=== PATIENT | female | born 1960 | race Caucasian/White ===

== ENCOUNTER 2022-04-27 21:09 | Inpatient (IN) | payer OTHER ==
[2022-04-27] MEDS ORDERED: DUONEB 0.5-3 MG/3 ml Neb IH ONE ×2 (21:28→21:42)
[2022-04-27] MEDS ORDERED: solu-MEDROL 125 MG, Sterile H2O 10 ml 2 ML IV ONE ×2 (21:28)
[2022-04-27] MEDS ORDERED: Zithromax 500 MG/ 250 ML NaCl Premix 500 MG/250 ML IVPB IV STA (21:28)
--- NOTE | 2022-04-27 21:33 | ERPHSYRPT ---
- History of Present Illness Time Seen by Provider: 04/27/22 21:12 Source: patient, family Exam Limitations: no limitations Physician History: 61 years old female with history of heavy tobacco use, COPD presented in the ER with 5-day history of cough and cold symptoms. Patient reports initially it started as a sore throat and gradually worsening cough productive of yellow- green sputum copious in amount with increasing shortness of breath. Initially shortness of breath was more with activity and now even resting and having wheezing all over. No fever or chills reported. Does report having sick contact with grandson who had some viral illness. Patient is hypoxic with oxygen saturation around 86% on room air, on 2 L around 91%. Timing/Duration: day(s) (5), constant, gradual onset, worse Activities at Onset: activity, rest Severity of Dyspnea-Max: moderate Severity of Dyspnea-Current: moderate Possible Cause: illness exposure Modifying Factors: Worsens With: coughing, exertion Associated Symptoms: cough, chest pain/discomfort, wheezing, productive cough, tightness, No painful breathing Allergies/Adverse Reactions: Penicillins Allergy (Mild, Verified 04/27/22 21:22) Difficulty Breathing Home Medications: Naproxen 500 mg [Naprosyn 500 MG] 500 mg PO BID PRN 12/25/17 [History] Famotidine 20 mg PO DAILY 04/30/22 [History] Loratadine/Pseudoephedrine [Claritin-D 12 Hour Tablet] 1 each PO DAILY 04/30/22 [History] Hx Tetanus, Diphtheria Vaccination/Date Given: (unknown) Hx Influenza Vaccination/Date Given: Yes (2014) Hx Pneumococcal Vaccination/Date Given: Yes (2014) - Review of Systems Constitutional: Fatigue, Weakness Eyes: No Symptoms Ears, Nose, & Throat: Nose Congestion, Throat Pain Respiratory: Cough, Cyanosis, Dyspnea, Dyspnea on Exertion (RIZO), Wheezing Cardiac: No Symptoms Abdominal/Gastrointestinal: No Symptoms Genitourinary Symptoms: Incontinence Musculoskeletal: No Symptoms Skin: No Symptoms Neurological: Headache Psychological: No Symptoms Endocrine: No Symptoms Hematologic/Lymphatic: No Symptoms Immunological/Allergic: No Symptoms - Past Medical History Pertinent Past Medical History: Yes Neurological History: No Pertinent History ENT History: No Pertinent History Cardiac History: No Pertinent History, Hypertension Respiratory History: Other Endocrine Medical History: No Pertinent History Musculoskeletal History: Arthritis, Fibromyalgia GI Medical History: GERD History: No Pertinent History Psycho-Social History: Anxiety Female Reproductive Disorders: No Pertinent History Other Medical History: SARCOIDOSIS - Past Surgical History Past Surgical History: Yes Neuro Surgical History: No Pertinent History Cardiac: No Pertinent History Respiratory: No Pertinent History Gastrointestinal: No Pertinent History Genitourinary: No Pertinent History Musculoskeletal: Other Female Surgical History: Tubal Ligation, Other Other Surgical History: GANGLIAN CYST REMOVED FROM LEFT WRIST. BRONCHOSCOPY. LUNG BIOPSY. LEFT BREAST BIOPSY. BACK SURGERY. EXPLORATORY LAPROSCOPY - Social History Smoking Status: Current every day smoker How long have you smoked: "43 years" Exposure to second hand smoke: No Drug Use: none Patient Lives Alone: No - Nursing Vital Signs Nursing Vital Signs: Initial Vital Signs Temperature 98.6 F 04/27/22 21:23 Pulse Rate 116 H 04/27/22 21:23 Respiratory Rate 23 04/27/22 21:23 Blood Pressure 168/96 04/27/22 21:23 O2 Sat by Pulse Oximetry 92 L 04/27/22 21:23 Pain Scale Pain Intensity 5 - Physical Exam General Appearance: mild distress, alert Eye Exam: PERRL/EOMI Ears, Nose, Throat Exam: hearing grossly normal, pharyngeal erythema Neck Exam: normal inspection, non-tender, supple, full range of motion Respiratory Exam: accessory muscle use, crackles/rales, rhonchi, wheezing Cardiovascular/Chest Exam: normal heart sounds, tachycardia Abdominal/Gastrointestinal Exam: soft, No tenderness Extremity Exam: non-tender, normal range of motion Neurologic Exam: alert, oriented x 3, cooperative, district sales coordinator II-XII nml as tested Skin Exam: normal color SpO2 Interpretation: hypoxic, O2 applied SpO2: 91 O2 Delivery: Nasal Cannula (2 L) - Course EKG Interpreted by Me: RATE (111), Sinus Tach, NORMAL AXIS, NORMAL INTERVALS, NORMAL QRS, Other (ST depression lateral leads) Ordered Tests: Medication Summary Generic Name Dose Route Start Last Admin Trade Name Freq PRN Reason Stop Dose Admin Acetaminophen 650 mg 04/28/22 01:58 04/28/22 19:34 Acetaminophen 325 Mg Tablet PO 05/28/22 01:57 650 mg Q4H PRN PRN Administration PAIN AND/OR FEVER Albuterol/Ipratropium 3 ml 04/28/22 01:58 04/30/22 13:28 Ipratropium/Albuterol Sulfate 3 Ml Ampul.Neb IH 05/28/22 01:57 3 ml Q6HRT INGE Administration Chlorphenir/Hydrocodone Polistirex 5 ml 04/30/22 11:48 04/30/22 12:21 Hydrocodone/Chlorphen P-Stirex 1 Ml Robyn.Er.12h PO 05/30/22 11:47 5 ml [id number] PRN Administration COUGH Methylprednisolone Sodium 0 mg 04/28/22 01:58 04/30/22 12:21 Succinate 60 mg/ Sterile Water IV 05/28/22 01:57 60 mg 2 ml Q6HT INGE Administration Azithromycin 500 mg in 250 mls @ 250 mls/hr 04/28/22 10:00 04/30/22 09:00 Zithromax 500 Mg/ 250 Ml Nacl Premix IV 05/28/22 09:59 250 mls/hr Q24H10 INGE Administration Ceftriaxone Sodium/Dextrose 1 g in 50 mls @ 100 mls/hr 04/30/22 14:00 04/30/22 14:21 Rocephin 1 Gm-D5w 50 Ml Bag IV 05/03/22 13:59 100 mls/hr Q24H10 INGE Administration Montelukast Sodium 10 mg 04/28/22 10:00 04/30/22 09:01 Montelukast Sodium 10 Mg Tablet PO 05/28/22 09:59 10 mg DAILY IGNE Administration Morphine Sulfate 2 mg 04/28/22 01:58 04/29/22 17:04 Morphine Sulfate 2 Mg/Ml Inj IV 05/03/22 01:57 2 mg Q4H PRN PRN Administration PAIN Naproxen 500 mg 04/30/22 12:35 Naproxen 500 Mg Tablet PO 05/28/22 09:59 BID PRN PAIN Ondansetron HCl 4 mg 04/28/22 01:58 Ondansetron Hcl 4 Mg/2 Ml Vial IV 05/28/22 01:57 Q6H PRN PRN NAUSEA/VOMITING Pantoprazole Sodium 40 mg 04/28/22 10:00 04/30/22 09:01 Pantoprazole 40 Mg Vial IV 05/28/22 09:59 40 mg Q24H10 INGE Administration Fluticasone/Salmeterol 2 puff 04/28/22 08:15 04/30/22 07:30 Fluticasone/Salmeterol 115/21 - 120 Puff Common Canister IH 05/28/22 08:14 2 puff BIDRT INGE Administration Theophylline 300 mg 04/30/22 12:00 04/30/22 13:22 Theophylline Anhydrous 400 Mg Tab.Er.24hr Tablet PO 05/30/22 11:59 300 mg DAILY INGE Administration Discontinued Medications Generic Name Dose Route Start Last Admin Trade Name Freq PRN Reason Stop Dose Admin Albuterol/Ipratropium 3 ml 04/27/22 21:28 04/27/22 21:40 Ipratropium/Albuterol Sulfate 3 Ml Ampul.Neb IH 04/27/22 21:29 3 ml STAT ONE Administration Albuterol/Ipratropium Confirm 04/27/22 21:42 Ipratropium/Albuterol Sulfate 3 Ml Ampul.Neb Administered 04/27/22 21:43 Dose 3 ml IH .STK-MED ONE Aztreonam Confirm 04/28/22 05:34 Aztreonam 1 Gm Vial Administered 04/28/22 05:35 Dose 1 gm .ROUTE .STK-MED ONE Aztreonam Confirm 04/28/22 05:38 Aztreonam 1 Gm Vial Administered 04/28/22 05:39 Dose 1 gm .ROUTE .STK-MED ONE Methylprednisolone Sodium 0 mg 04/27/22 21:28 04/27/22 21:49 Succinate 125 mg/ Sterile IV 04/27/22 21:29 125 mg Water 2 ml STAT ONE Administration Guaifenesin/Dextromethorphan 10 ml 04/28/22 10:00 04/29/22 09:04 Guaifenesin/D-Methorphan Hb 118 Ml Syrup PO 05/28/22 09:59 10 ml TID INGE Administration Guaifenesin/Dextromethorphan 10 ml 04/29/22 13:11 04/29/22 17:02 Guaifenesin/D-Methorphan Hb 118 Ml Syrup PO 05/29/22 13:10 10 ml TIDPRN PRN Administration COUGH Azithromycin 500 mg in 250 mls @ 250 mls/hr 04/27/22 21:28 04/27/22 22:57 Zithromax 500 Mg/ 250 Ml Nacl Premix IV 04/27/22 22:27 Infused STAT STA Infusion Azithromycin Confirm 04/27/22 21:55 Zithromax 500 Mg/ 250 Ml Nacl Premix Administered 04/27/22 21:56 Dose 500 mg in 250 mls @ ud IV .STK-MED ONE Aztreonam 2 gm/ Sodium 100 mls @ 200 mls/hr 04/27/22 22:21 04/27/22 23:03 Chloride IV 04/27/22 22:50 200 mls/hr STAT ONE Administration Aztreonam 2 gm/ Sodium 100 mls @ 200 mls/hr 04/28/22 06:00 04/30/22 05:56 Chloride IV 05/01/22 05:59 200 mls/hr Q8HT INGE Administration Potassium Chloride/Sodium Chloride Confirm 04/28/22 02:07 Sodium Chloride 0.9% W/ 20 Meq Kcl/Liter Administered 04/28/22 02:08 Dose 1,000 mls @ ud IV .STK-MED ONE Dextrose Confirm 04/28/22 05:34 D5w 100ml Mini Bag 100 Ml Administered 04/28/22 05:35 Dose 100 mls @ ud IV .STK-MED ONE Sodium Chloride Confirm 04/28/22 05:39 Sodium Chloride 0.9% Administered 04/28/22 05:40 Dose 100 mls @ ud .ROUTE .STK-MED ONE Ceftriaxone Sodium/Dextrose 1 g in 50 mls @ 100 mls/hr 05/01/22 10:00 Rocephin 1 Gm-D5w 50 Ml Bag IV 05/04/22 09:59 Q24H10 [facility] Methylprednisolone Sodium Succinate Confirm 04/27/22 21:48 Methylprednis Sod Succ 125 Mg/2 Ml Vial Administered 04/27/22 21:49 Dose 125 mg .ROUTE .STK-MED ONE Methylprednisolone Sodium Succinate Confirm 04/28/22 05:30 Methylprednis Sod Succ 125 Mg/2 Ml Vial Administered 04/28/22 05:31 Dose 125 mg .ROUTE .STK-MED ONE Methylprednisolone Sodium Succinate Confirm 04/28/22 09:18 Methylprednis Sod Succ 125 Mg/2 Ml Vial Administered 04/28/22 09:19 Dose 125 mg .ROUTE .STK-MED ONE Methylprednisolone Sodium Succinate Confirm 04/29/22 11:24 Methylprednis Sod Succ 125 Mg/2 Ml Vial Administered 04/29/22 11:25 Dose 125 mg .ROUTE .STK-MED ONE Methylprednisolone Sodium Succinate Confirm 04/29/22 17:04 Methylprednis Sod Succ 125 Mg/2 Ml Vial Administered 04/29/22 17:05 Dose 125 mg .ROUTE .STK-MED ONE Naproxen 500 mg 04/28/22 10:00 04/30/22 09:01 Naproxen 500 Mg Tablet PO 05/28/22 09:59 500 mg BID INGE Administration Sterile Water Confirm 04/27/22 21:48 Water For Injection,Sterile 10 Ml Vial Administered 04/27/22 21:49 Dose 10 ml IJ .STK-MED ONE Sterile Water Confirm 04/28/22 05:53 Water For Injection,Sterile 10 Ml Vial Administered 04/28/22 05:54 Dose 10 ml IJ .STK-MED ONE Lab/Rad Data: Laboratory Result Diagrams 04/27/22 21:40 04/27/22 21:40 Laboratory Results 04/27/22 04/27/22 04/27/22 Range/Units 22:39 22:30 22:21 WBC (4.0-10.5) x10^3/uL RBC (4.1-5.4) x10^6/uL Hgb (12.0-16.0) g/dL Hct (35-47) % MCV (78-100) fL MCH (26-32) pg MCHC (32-36) g/dL RDW (11.5-14.0) % Plt Count (150-450) x10^3/uL MPV (7.5-11.0) fL Eos # (Auto) (0-0.5) x10^3/uL Immature Gran # (Auto) (0.00-0.03) x10^3u/L Absolute Lymphs (auto) (1.0-4.6) x10^3/uL Absolute Monos (auto) (0.0-1.3) x10^3/uL Absolute Nucleated RBC (0.00-0.01) x10^3u/L Segmented Neutrophils (36.0-66.0) % Band Neutrophils (0.0-2.0) % Lymphocytes (Manual) (24-44) % Monocytes (Manual) (0.0-12.0) % Basophils (Manual) (0.0-1.0) % Basophils # (0-0.4) x10^3/uL Platelet Estimate (NORMAL) RBC Morphology D-Dimer 1.97 H* (0.0-0.50) mg/L Puncture Site pCO2 (35-45) mmHg pO2 (75-100) mmHg Base Excess (-2.0-2.0) O2 Saturation (94-100) g/dF ABG pH (7.35-7.45) ABG HCO3 (22-28) ABG O2 Sat (Measured) (95-100) % Grant Test A-a Gradient a/A Ratio Hemoglobin Carboxyhemoglobin (0.0-6.9) % THgb Methemoglobin (1.4-1.5) % Temperature C POC O2 Flow Rate % Sodium (137-145) mmol/L Potassium (3.5-5.1) mmol/L Chloride (98-107) mmol/L Carbon Dioxide (22-30) mmol/L Anion Gap (5-15) MEQ/L BUN (7-17) mg/dL Creatinine (0.52-1.04) mg/dL Estimated GFR ML/MIN Glucose (74-106) mg/dL Lactic Acid (0.4-2.0) Calcium (8.4-10.2) mg/dL Magnesium (1.6-2.3) mg/dL Total Bilirubin (0.2-1.3) mg/dL AST (14-36) U/L ALT (0-35) U/L Alkaline Phosphatase (38-126) U/L Troponin I (0.000-0.034) ng/mL NT-Pro-B Natriuret Pep (0-900) pg/mL Serum Total Protein (6.3-8.2) g/dL Albumin (3.5-5.0) g/dL Urinalys Dipstick Clnc MAIN LAB Urine Color YELLOW (YELLOW) Urine Appearance CLEAR (CLEAR) Urine pH 6.0 (5-6) Ur Specific [place] >=1.030 (1.005-1.025) POC Urine Protein Conf >=300 (Negative) Urine Ketones >=160 (NEGATIVE) Urine Nitrite NEGATIVE (NEGATIVE) Urine Bilirubin MODERATE (NEGATIVE) Urine Urobilinogen 1 (0-1) mg/dL Urine Leukocytes NEGATIVE (NEGATIVE) Urine WBC (Auto) 3-5 (0-5) /HPF Urine RBC (Auto) 3-5 (0-2) /HPF U Epithel Cells (Auto) RARE (FEW) /HPF Urine Bacteria (Auto) MODERATE (NEGATIVE) /HPF Urine RBC MODERATE (0-5) Geovany/ul Other Casts (Auto) NEGATIVE (NEGATIVE) /LPF Urine Mucus (Auto) MANY (NEGATIVE) /HPF Ur Culture Indicated? YES Urine Glucose NEGATIVE (NEGATIVE) mg/dL Influenza Type A Ag NEGATIVE (NEGATIVE) Influenza Type B Ag NEGATIVE (NEGATIVE) RSV (PCR) NEGATIVE (Negative) SARS-CoV-2 (PCR) NEGATIVE (NEGATIVE) 04/27/22 04/27/22 04/27/22 Range/Units 21:47 21:40 21:40 WBC (4.0-10.5) x10^3/uL RBC (4.1-5.4) x10^6/uL Hgb (12.0-16.0) g/dL Hct (35-47) % MCV (78-100) fL MCH (26-32) pg MCHC (32-36) g/dL RDW (11.5-14.0) % Plt Count (150-450) x10^3/uL MPV (7.5-11.0) fL Eos # (Auto) (0-0.5) x10^3/uL Immature Gran # (Auto) (0.00-0.03) x10^3u/L Absolute Lymphs (auto) (1.0-4.6) x10^3/uL Absolute Monos (auto) (0.0-1.3) x10^3/uL Absolute Nucleated RBC (0.00-0.01) x10^3u/L Segmented Neutrophils (36.0-66.0) % Band Neutrophils (0.0-2.0) % Lymphocytes (Manual) (24-44) % Monocytes (Manual) (0.0-12.0) % Basophils (Manual) (0.0-1.0) % Basophils # (0-0.4) x10^3/uL Platelet Estimate (NORMAL) RBC Morphology D-Dimer (0.0-0.50) mg/L Puncture Site RIGHT RADIAL pCO2 32 L (35-45) mmHg pO2 92 (75-100) mmHg Base Excess 5.9 H (-2.0-2.0) O2 Saturation 94.9 (94-100) g/dF ABG pH 7.55 H* (7.35-7.45) ABG HCO3 28.0 (22-28) ABG O2 Sat (Measured) 99.2 (95-100) % Grant Test Pending A-a Gradient 18 a/A Ratio 0.84 Hemoglobin 15.2 Carboxyhemoglobin 3.8 (0.0-6.9) % THgb Methemoglobin 0.5 L (1.4-1.5) % Temperature 37.0 C POC O2 Flow Rate 21 % Sodium 138 (137-145) mmol/L Potassium 3.3 L 3.4 L (3.5-5.1) mmol/L Chloride 99 (98-107) mmol/L Carbon Dioxide 29 (22-30) mmol/L Anion Gap 13.7 (5-15) MEQ/L BUN 22 H (7-17) mg/dL Creatinine 0.56 (0.52-1.04) mg/dL Estimated GFR > 60.0 ML/MIN Glucose 128 H (74-106) mg/dL Lactic Acid 1.4 (0.4-2.0) Calcium 9.3 (8.4-10.2) mg/dL Magnesium 1.9 (1.6-2.3) mg/dL Total Bilirubin 0.80 (0.2-1.3) mg/dL AST 23 (14-36) U/L ALT 21 (0-35) U/L Alkaline Phosphatase 111 (38-126) U/L Troponin I < 0.012 (0.000-0.034) ng/mL NT-Pro-B Natriuret Pep 163 (0-900) pg/mL Serum Total Protein 7.8 (6.3-8.2) g/dL Albumin 3.9 (3.5-5.0) g/dL Urinalys Dipstick Clnc Urine Color (YELLOW) Urine Appearance (CLEAR) Urine pH (5-6) Ur Specific [place] (1.005-1.025) POC Urine Protein Conf (Negative) Urine Ketones (NEGATIVE) Urine Nitrite (NEGATIVE) Urine Bilirubin (NEGATIVE) Urine Urobilinogen (0-1) mg/dL Urine Leukocytes (NEGATIVE) Urine WBC (Auto) (0-5) /HPF Urine RBC (Auto) (0-2) /HPF U Epithel Cells (Auto) (FEW) /HPF Urine Bacteria (Auto) (NEGATIVE) /HPF Urine RBC (0-5) Geovany/ul Other Casts (Auto) (NEGATIVE) /LPF Urine Mucus (Auto) (NEGATIVE) /HPF Ur Culture Indicated? Urine Glucose (NEGATIVE) mg/dL Influenza Type A Ag (NEGATIVE) Influenza Type B Ag (NEGATIVE) RSV (PCR) (Negative) SARS-CoV-2 (PCR) (NEGATIVE) 04/27/22 Range/Units 21:40 WBC 8.5 (4.0-10.5) x10^3/uL RBC 4.94 (4.1-5.4) x10^6/uL Hgb 15.0 (12.0-16.0) g/dL Hct 45.3 (35-47) % MCV 91.7 (78-100) fL MCH 30.4 (26-32) pg MCHC 33.1 (32-36) g/dL RDW 13.9 (11.5-14.0) % Plt Count 177 (150-450) x10^3/uL MPV 10.8 (7.5-11.0) fL Eos # (Auto) 0.12 (0-0.5) x10^3/uL Immature Gran # (Auto) 0.24 H (0.00-0.03) x10^3u/L Absolute Lymphs (auto) 0.73 L (1.0-4.6) x10^3/uL Absolute Monos (auto) 1.10 (0.0-1.3) x10^3/uL Absolute Nucleated RBC 0.00 (0.00-0.01) x10^3u/L Segmented Neutrophils 66 (36.0-66.0) % Band Neutrophils 10 H (0.0-2.0) % Lymphocytes (Manual) 12 L (24-44) % Monocytes (Manual) 11 (0.0-12.0) % Basophils (Manual) 1 (0.0-1.0) % Basophils # 0.02 (0-0.4) x10^3/uL Platelet Estimate NORMAL (NORMAL) RBC Morphology NORMAL D-Dimer (0.0-0.50) mg/L Puncture Site pCO2 (35-45) mmHg pO2 (75-100) mmHg Base Excess (-2.0-2.0) O2 Saturation (94-100) g/dF ABG pH (7.35-7.45) ABG HCO3 (22-28) ABG O2 Sat (Measured) (95-100) % Grant Test A-a Gradient a/A Ratio Hemoglobin Carboxyhemoglobin (0.0-6.9) % THgb Methemoglobin (1.4-1.5) % Temperature C POC O2 Flow Rate % Sodium (137-145) mmol/L Potassium (3.5-5.1) mmol/L Chloride (98-107) mmol/L Carbon Dioxide (22-30) mmol/L Anion Gap (5-15) MEQ/L BUN (7-17) mg/dL Creatinine (0.52-1.04) mg/dL Estimated GFR ML/MIN Glucose (74-106) mg/dL Lactic Acid (0.4-2.0) Calcium (8.4-10.2) mg/dL Magnesium (1.6-2.3) mg/dL Total Bilirubin (0.2-1.3) mg/dL AST (14-36) U/L ALT (0-35) U/L Alkaline Phosphatase (38-126) U/L Troponin I (0.000-0.034) ng/mL NT-Pro-B Natriuret Pep (0-900) pg/mL Serum Total Protein (6.3-8.2) g/dL Albumin (3.5-5.0) g/dL Urinalys Dipstick Clnc Urine Color (YELLOW) Urine Appearance (CLEAR) Urine pH (5-6) Ur Specific [place] (1.005-1.025) POC Urine Protein Conf (Negative) Urine Ketones (NEGATIVE) Urine Nitrite (NEGATIVE) Urine Bilirubin (NEGATIVE) Urine Urobilinogen (0-1) mg/dL Urine Leukocytes (NEGATIVE) Urine WBC (Auto) (0-5) /HPF Urine RBC (Auto) (0-2) /HPF U Epithel Cells (Auto) (FEW) /HPF Urine Bacteria (Auto) (NEGATIVE) /HPF Urine RBC (0-5) Geovany/ul Other Casts (Auto) (NEGATIVE) /LPF Urine Mucus (Auto) (NEGATIVE) /HPF Ur Culture Indicated? Urine Glucose (NEGATIVE) mg/dL Influenza Type A Ag (NEGATIVE) Influenza Type B Ag (NEGATIVE) RSV (PCR) (Negative) SARS-CoV-2 (PCR) (NEGATIVE) - Progress Progress: re-examined Air Movement: fair Progress Note: 04/27/22 22:54 Years old is evaluated for worsening shortness of breath and cough. Patient is hypoxic, placed on 2 L oxygen. Given DuoNeb and Solu-Medrol, on reevaluation feeling some improvement but still have wheezing. Chest x-ray showed bilateral infiltrative process, started on broad-spectrum antibiotics. Discussed with Dr. Nixon and patient is excepted for admission. 04/28/22 00:19 Has positive D-dimers, CTA chest is pending. Blood Culture(s) Obtained: Yes Antibiotics given: Yes Discussed with : Bigg Will see patient in: hospital (full admit) Counseled pt/family regarding: lab results, diagnosis, rad results - Departure Departure Disposition: In-patient Admission Clinical Impression: COPD exacerbation, Bilateral pneumonia Respiratory failure Qualifiers: Chronicity: acute Respiratory failure complication: hypoxia Qualified Code(s): J96.01 - Acute respiratory failure with hypoxia Condition: Stable Critical Care Time: No
[2022-04-27] MEDS ORDERED: solu-MEDROL ONE (21:48)
[2022-04-27] MEDS ORDERED: Sterile H2O 10 ml IJ ONE (21:48)
[2022-04-27] MEDS ORDERED: Zithromax 500 MG/ 250 ML NaCl Premix 500 MG/250 ML IVPB IV ONE (21:55)
[2022-04-27 22:02] LABS: Basophil (Absolute #) 0.02 x10^3/uL (0-0.4); Eosinophil (Absolute #) 0.12 x10^3/uL (0-0.5); Hematocrit 45.3 % (35-47); Lymphocyte (Absolute #) 0.73 x10^3/uL (1.0-4.6); Mean Cell Volume 91.7 fL (78-100); Mean Corpuscular Hemoglobin 30.4 pg (26-32); Mean Corpuscular Hgb Concent. 33.1 g/dL (32-36); Mean Platelet Volume 10.8 fL (7.5-11.0); Platelet Count 177 x10^3/uL (150-450); Red Blood Count 4.94 x10^6/uL (4.1-5.4); Red Cell Distribution Width 13.9 % (11.5-14.0); White Blood Count 8.5 x10^3/uL (4.0-10.5)
[2022-04-27 22:02] LABS: A-aADO2 18; ABG HEMOGLOBIN 15.2; ABG POTASSIUM 3.3 (3.5-5.1); ARTERIAL BLD GAS O2 SATURATION 99.2 % (95-100); ARTERIAL BLOOD GAS BASE EXCESS 5.9 (-2.0-2.0); ARTERIAL BLOOD GAS FIO2 21 %; ARTERIAL BLOOD GAS PCO2 32 mmHg (35-45); ARTERIAL BLOOD GAS PO2 92 mmHg (75-100); CARBOXYHEMOGLOBIN 3.8 % THgb (0.0-6.9); HGB O2 SAT 94.9 g/dF (94-100); Lactic Acid 1.4 (0.4-2.0); Methhemoglobin 0.5 % (1.4-1.5)
[2022-04-27 22:03] LABS: ARTERIAL BLOOD GAS pH 7.55 (7.35-7.45)
[2022-04-27 22:04] LABS: ABG SITE RIGHT RADIAL
[2022-04-27] MEDS ORDERED: AZACTAM 1 GM*** 2 GM in Sodium Chloride 0.9% 100 ML IV ONE (22:21)
[2022-04-27 22:26] LABS: ALBUMIN 3.9 g/dL (3.5-5.0); ALKALINE PHOSPHATASE 111 U/L (38-126); ANION GAP 13.7 MEQ/L (5-15); BLOOD UREA NITROGEN 22 mg/dL (7-17); CHLORIDE 99 mmol/L (98-107); Calcium 9.3 mg/dL (8.4-10.2); Carbon Dioxide 29 mmol/L (22-30); Creatinine 1 0.56 mg/dL (0.52-1.04); EST GLOMERULAR FILTRATION RATE > 60.0 ML/MIN; Glucose 128 mg/dL (74-106); MAGNESIUM 1.9 mg/dL (1.6-2.3); NT PRO BNP 163 pg/mL (0-900); Potassium 3.4 mmol/L (3.5-5.1); SGOT/AST 23 U/L (14-36); SGPT/ALT 21 U/L (0-35); SODIUM 138 mmol/L (137-145); Total Protein 7.8 g/dL (6.3-8.2)
[2022-04-27 23:09] LABS: Appearance CLEAR (CLEAR); Bilirubin MODERATE (NEGATIVE); Dipstick done @ ? MAIN LAB; Glucose NEGATIVE (NEGATIVE); Ketones >=160 (NEGATIVE); Nitrite NEGATIVE (NEGATIVE); Protein,Urine Dip >=300 (Negative); RBC MODERATE Ery/ul (0-5); Specific Gravity >=1.030 (1.005-1.025); Urobilinogen 1 mg/dL (0-1)
[2022-04-27 23:14] LABS: Bacteria MODERATE /HPF (NEGATIVE); Epithelial Cells RARE /HPF (FEW); Mucus MANY /HPF (NEGATIVE)
[2022-04-27 23:16] LABS: Urine Cultured Indicated? YES
[2022-04-27 23:21] LABS: INFLUENZA A NEGATIVE (NEGATIVE); INFLUENZA B NEGATIVE (NEGATIVE); RESPIRATORY SYNCTIAL VIRUS NEGATIVE (Negative); SARS-CoV-2 Xpert Express NEGATIVE (NEGATIVE)
[2022-04-27 23:35] LABS: BAND 10 % (0.0-2.0); Basophil 1 % (0.0-1.0); Lymphocytes 12 % (24-44); Monocyte 11 % (0.0-12.0); Platelet Estimate NORMAL (NORMAL); Total Cells Counted 100
[2022-04-28] MEDS ORDERED: MORPHINE SULFATE 2 MG INJ IV PRN (01:58)
[2022-04-28] MEDS ORDERED: Zofran 4 MG/2 ML VIAL IV PRN (01:58)
[2022-04-28] MEDS ORDERED: TYLENOL 325 MG PO PRN (01:58)
[2022-04-28] MEDS ORDERED: Sodium Chloride 0.9% W/ 20 mEq KCl/LITER 0 ML IV ONE (02:07)
[2022-04-28] MEDS: DUONEB 0.5-3 MG/3 ml Neb IH SCH ×4 (04:25→18:59)
[2022-04-28 05:02] LABS: Hemoglobin 14.3 g/dL (12.0-16.0); Mean Cell Volume 91.7 fL (78-100); Mean Corpuscular Hemoglobin 29.8 pg (26-32); Mean Corpuscular Hgb Concent. 32.5 g/dL (32-36); Mean Platelet Volume 10.7 fL (7.5-11.0); Platelet Count 164 x10^3/uL (150-450); Red Cell Distribution Width 13.7 % (11.5-14.0); White Blood Count 7.8 x10^3/uL (4.0-10.5)
[2022-04-28 05:30] LABS: ALBUMIN 3.6 g/dL (3.5-5.0); ALKALINE PHOSPHATASE 100 U/L (38-126); ANION GAP 10.4 MEQ/L (5-15); BLOOD UREA NITROGEN 20 mg/dL (7-17); CHLORIDE 99 mmol/L (98-107); Calcium 9.1 mg/dL (8.4-10.2); Carbon Dioxide 32 mmol/L (22-30); Creatinine 1 0.62 mg/dL (0.52-1.04); EST GLOMERULAR FILTRATION RATE > 60.0 ML/MIN; Glucose 236 mg/dL (74-106); Potassium 3.5 mmol/L (3.5-5.1); SGOT/AST 21 U/L (14-36); SGPT/ALT 20 U/L (0-35); SODIUM 137 mmol/L (137-145); Total Protein 7.2 g/dL (6.3-8.2)
[2022-04-28] MEDS ORDERED: solu-MEDROL ONE ×2 (05:30→09:18)
[2022-04-28] MEDS ORDERED: AZACTAM 1 GM ONE ×2 (05:34→05:38)
[2022-04-28] MEDS ORDERED: D5w 100ML Mini Bag 100 ML 0 ML IV ONE (05:34)
[2022-04-28] MEDS ORDERED: Sodium Chloride 0.9% 100 ML ONE (05:39)
[2022-04-28 05:41] LABS: BAND 6 % (0.0-2.0); Lymphocytes 2 % (24-44); Monocyte 4 % (0.0-12.0); Total Cells Counted 100
[2022-04-28 05:42] LABS: Platelet Estimate NORMAL (NORMAL)
[2022-04-28] MEDS ORDERED: Sterile H2O 10 ml IJ ONE (05:53)
[2022-04-28] MEDS: AZACTAM 1 GM*** 2 GM in Sodium Chloride 0.9% 100 ML IV SCH ×3 (05:56→22:04)
[2022-04-28] MEDS: solu-MEDROL 60 MG, Sterile H2O 10 ml 2 ML IV SCH ×8 (05:58→17:00)
--- NOTE | 2022-04-28 08:37 | XRAY ---
Indication: Short of breath. Elevated d-dimer. COPD. Multiple contiguous axial images obtained through the chest using 100 cc Isovue-370 contrast and PE protocol. Comparison: April 08, 2007 Adequate opacification of the pulmonary arteries. No pulmonary embolus. Heart not enlarged. Aorta is normal in course and caliber. Again small mediastinal and large chunky right hilar calcified nodes. Lungs demonstrates new diffuse bilateral patchy tree-in-bud like opacities with minimal background of groundglass opacities favoring pneumonitis. No consolidation/effusion. Bony thorax intact with minimal degenerative changes throughout the spine. Limited upper abdomen again demonstrates tiny splenic calcified granulomas, fatty liver, and hepatic cysts. Impression: 1. Negative pulmonary embolus. 2. New diffuse bilateral patchy [id number]-like opacities and groundglass opacities favoring pneumonitis. 3. Chronic findings including fatty liver, hepatic cyst, and old granulomatous disease. Comment: Preliminary interpretation made by [facility]. No critical discrepancy.
--- NOTE | 2022-04-28 08:38 | XRAY ---
Indication: Cough and congestion. COPD. Comparison: March 22, 2007 Portable chest demonstrates new diffuse bilateral hazy interstitial alveolar opacities without consolidation/large effusion. Heart not enlarged again with chunky mediastinal/hilar calcified nodes. Bony thorax intact.
[2022-04-28] MEDS: Advair Hfa 115/21 Common canister IH SCH ×2 (08:48→19:01)
[2022-04-28] MEDS: Robitussin-Dm Syrup PO SCH ×3 (09:20→22:33)
[2022-04-28] MEDS: PROTONIX 40 MG IV IV SCH (09:20)
[2022-04-28] MEDS: Singulair 10 MG PO SCH (09:20)
[2022-04-28] MEDS: Naprosyn 500 MG PO SCH ×2 (09:21→22:03)
[2022-04-28] MEDS: Zithromax 500 MG/ 250 ML NaCl Premix 500 MG/250 ML IVPB IV SCH (09:21)
[2022-04-28] MEDS ORDERED: FLUZONE QUAD 2022-2023 SYRINGE IM ONE (10:00)
[2022-04-29] MEDS: solu-MEDROL 60 MG, Sterile H2O 10 ml 2 ML IV SCH ×10 (00:32→23:35)
[2022-04-29] MEDS: DUONEB 0.5-3 MG/3 ml Neb IH SCH ×4 (00:59→19:18)
[2022-04-29] MEDS: AZACTAM 1 GM*** 2 GM in Sodium Chloride 0.9% 100 ML IV SCH ×4 (05:42→21:32)
[2022-04-29 07:19] LABS: Hematocrit 41.4 % (35-47); Hemoglobin 13.3 g/dL (12.0-16.0); Mean Cell Volume 93.9 fL (78-100); Mean Corpuscular Hemoglobin 30.2 pg (26-32); Mean Corpuscular Hgb Concent. 32.1 g/dL (32-36); Mean Platelet Volume 11.2 fL (7.5-11.0); Platelet Count 192 x10^3/uL (150-450); Red Blood Count 4.41 x10^6/uL (4.1-5.4); Red Cell Distribution Width 14.1 % (11.5-14.0); White Blood Count 8.5 x10^3/uL (4.0-10.5)
[2022-04-29] MEDS: Advair Hfa 115/21 Common canister IH SCH ×2 (07:29→19:19)
[2022-04-29 07:31] LABS: ALBUMIN 3.5 g/dL (3.5-5.0); ALKALINE PHOSPHATASE 98 U/L (38-126); ANION GAP 11.4 MEQ/L (5-15); BLOOD UREA NITROGEN 38 mg/dL (7-17); CHLORIDE 103 mmol/L (98-107); Calcium 9.6 mg/dL (8.4-10.2); Carbon Dioxide 33 mmol/L (22-30); Creatinine 1 0.76 mg/dL (0.52-1.04); EST GLOMERULAR FILTRATION RATE > 60.0 ML/MIN; Glucose 175 mg/dL (74-106); Potassium 4.1 mmol/L (3.5-5.1); SGOT/AST 19 U/L (14-36); SGPT/ALT 19 U/L (0-35); SODIUM 143 mmol/L (137-145)
[2022-04-29] MEDS: PROTONIX 40 MG IV IV SCH (09:03)
[2022-04-29] MEDS: Zithromax 500 MG/ 250 ML NaCl Premix 500 MG/250 ML IVPB IV SCH (09:03)
[2022-04-29] MEDS: Naprosyn 500 MG PO SCH ×2 (09:03→21:31)
[2022-04-29] MEDS: Singulair 10 MG PO SCH (09:03)
[2022-04-29] MEDS: Robitussin-Dm Syrup PO SCH (09:04)
[2022-04-29] MEDS ORDERED: solu-MEDROL ONE ×2 (11:24→17:04)
[2022-04-29] MEDS ORDERED: Robitussin-Dm Syrup PO PRN (13:11)
[2022-04-29 18:28] LABS: BAND 12 % (0.0-2.0); Lymphocytes 9 % (24-44); Monocyte 3 % (0.0-12.0); Platelet Estimate NORMAL (NORMAL); Total Cells Counted 100
[2022-04-30] MEDS: DUONEB 0.5-3 MG/3 ml Neb IH SCH ×4 (00:40→18:59)
[2022-04-30] MEDS: AZACTAM 1 GM*** 2 GM in Sodium Chloride 0.9% 100 ML IV SCH (05:56)
[2022-04-30] MEDS: solu-MEDROL 60 MG, Sterile H2O 10 ml 2 ML IV SCH ×8 (05:56→23:19)
[2022-04-30 06:59] LABS: Hematocrit 38.4 % (35-47); Hemoglobin 12.3 g/dL (12.0-16.0); Mean Cell Volume 93.9 fL (78-100); Mean Corpuscular Hemoglobin 30.1 pg (26-32); Mean Platelet Volume 11.1 fL (7.5-11.0); Platelet Count 191 x10^3/uL (150-450); Red Blood Count 4.09 x10^6/uL (4.1-5.4); Red Cell Distribution Width 14.3 % (11.5-14.0); White Blood Count 8.1 x10^3/uL (4.0-10.5)
[2022-04-30 07:11] LABS: ANION GAP 8.1 MEQ/L (5-15); BLOOD UREA NITROGEN 41 mg/dL (7-17); CHLORIDE 104 mmol/L (98-107); Calcium 8.9 mg/dL (8.4-10.2); Carbon Dioxide 33 mmol/L (22-30); Creatinine 1 0.62 mg/dL (0.52-1.04); EST GLOMERULAR FILTRATION RATE > 60.0 ML/MIN; Glucose 175 mg/dL (74-106); Potassium 4.1 mmol/L (3.5-5.1); SODIUM 141 mmol/L (137-145)
[2022-04-30] MEDS: Advair Hfa 115/21 Common canister IH SCH ×2 (07:30→19:01)
[2022-04-30] MEDS: Zithromax 500 MG/ 250 ML NaCl Premix 500 MG/250 ML IVPB IV SCH (09:00)
[2022-04-30] MEDS: Singulair 10 MG PO SCH (09:01)
[2022-04-30] MEDS: PROTONIX 40 MG IV IV SCH (09:01)
[2022-04-30] MEDS: Naprosyn 500 MG PO SCH (09:01)
[2022-04-30] MEDS ORDERED: HYDROCODONE-CHLORPHEN ER SUSP PO PRN (11:48)
[2022-04-30] MEDS ORDERED: Naprosyn 500 MG PO PRN (12:35)
[2022-04-30] MEDS: THEOPHYLLINE ER 24HR PO SCH (13:22)
[2022-04-30] MEDS: ROCEPHIN 1 Gm-D5w 50 ml Bag** 1 G/50 ML IVPB IV SCH (14:21)
[2022-04-30 17:36] LABS: BAND 5 % (0.0-2.0); Lymphocytes 6 % (24-44); Metamyelocyte 4 %; Monocyte 5 % (0.0-12.0); Platelet Estimate NORMAL (NORMAL); Total Cells Counted 100
[2022-05-01] MEDS: DUONEB 0.5-3 MG/3 ml Neb IH SCH ×3 (00:48→13:03)
[2022-05-01 05:03] LABS: Hematocrit 38.9 % (35-47); Mean Cell Volume 97.5 fL (78-100); Mean Corpuscular Hemoglobin 30.1 pg (26-32); Mean Corpuscular Hgb Concent. 30.8 g/dL (32-36); Platelet Count 185 x10^3/uL (150-450); Red Blood Count 3.99 x10^6/uL (4.1-5.4); Red Cell Distribution Width 14.2 % (11.5-14.0); White Blood Count 7.8 x10^3/uL (4.0-10.5)
[2022-05-01 05:26] LABS: BLOOD UREA NITROGEN 31 mg/dL (7-17); CHLORIDE 104 mmol/L (98-107); Calcium 8.7 mg/dL (8.4-10.2); Carbon Dioxide 32 mmol/L (22-30); Creatinine 1 0.58 mg/dL (0.52-1.04); EST GLOMERULAR FILTRATION RATE > 60.0 ML/MIN; Glucose 182 mg/dL (74-106); Potassium 4.1 mmol/L (3.5-5.1); SODIUM 143 mmol/L (137-145)
[2022-05-01] MEDS ORDERED: solu-MEDROL ONE (06:01)
[2022-05-01 06:27] LABS: BAND 2 % (0.0-2.0); Lymphocytes 17 % (24-44); Monocyte 8 % (0.0-12.0); Total Cells Counted 100
[2022-05-01 06:32] LABS: Platelet Estimate NORMAL (NORMAL)
[2022-05-01] MEDS: solu-MEDROL 60 MG, Sterile H2O 10 ml 2 ML IV SCH ×4 (06:43→10:57)
[2022-05-01] MEDS: Advair Hfa 115/21 Common canister IH SCH (07:01)
[2022-05-01] MEDS: ROCEPHIN 1 Gm-D5w 50 ml Bag** 1 G/50 ML IVPB IV SCH (07:45)
[2022-05-01] MEDS: Zithromax 500 MG/ 250 ML NaCl Premix 500 MG/250 ML IVPB IV SCH (08:20)
[2022-05-01] MEDS ORDERED: ROCEPHIN 1 Gm-D5w 50 ml Bag** 1 G/50 ML IVPB IV SCH (10:00)
[2022-05-01] MEDS: Singulair 10 MG PO SCH (10:57)
[2022-05-01] MEDS: THEOPHYLLINE ER 24HR PO SCH (10:57)
[2022-05-01] MEDS: PROTONIX 40 MG IV IV SCH (10:57)
[2022-05-01 11:53] VITALS: BP 179/80
--- NOTE | 2022-05-01 12:33 | PCM.DCORD ---
- Discharge Disposition: Home, Self-Care Condition: Stable Prescriptions: New Prednisone 10 mg [Deltasone 10 mg] 10 mg PO BID #20 tablet Azithromycin 250 mg [Zithromax 250 MG TABLET] 250 mg PO ZPACK #1 tablet Cefuroxime Axetil 500 mg [Ceftin 500 mg] 500 mg PO BID #10 tablet Albuterol Sulfate [Albuterol Sulfate Hfa] 18 gm IH Q4H PRN #1 PRN Reason: wheezing Ipratropium/Albuterol Sulfate [Iprat-Albut 0.5-3(2.5) mg/3 ml] 3 ml IH TID #60 Continue Naproxen 500 mg [Naprosyn 500 MG] 500 mg PO BID PRN PRN Reason: Pain Famotidine 20 mg PO DAILY Loratadine/Pseudoephedrine [Claritin-D 12 Hour Tablet] 1 each PO DAILY Instructions: Chronic Obstructive Pulmonary Disease (COPD) (DC), How to Use a Nebulizer, Adult Additional Instructions: ORDER FOR NEB MACHINE WAS CALLED INTO [facility] Follow up with: PÉREZ ZHOU MD [ACTIVE STAFF] - 05/09/22 Forms: Discharge Instructions
--- NOTE | 2022-05-01 12:50 | PCM.DS ---
Discharge Summary Date of Admission: 04/28/22 01:55 Date of Discharge: 05/01/22 Admitting Physician: PÉREZ ZHOU Primary Care Provider: JOSUE LEWIS Allergies Allergies Penicillins Allergy (Mild, Verified 04/27/22 21:22) Difficulty Breathing Hospital Summary - Hospital Course Hospital Course: Patient is a 61 yr old female patient of Dr Zhou's admitted for COPD exacerbation ,acute respiratory failure,hypoxia,pneumonia . Chest CT neg for PE,showed ground glass opacities. Tested neg for covid,RSV,Flu. Patient gives a 5 day hx of wheezing and productive cough and fever,states large amounts of thick green mucus. Required O2 until today. Treated with IV solumedrol ,zithromax and Rocephin ,duoneb with slow improvement. Patient continues to smoke 1ppd x 43 yrs and states she will reduce but not quit smoking at this time. Refuses referal to [employer],refuses nicotene patch during hospital stay or other meds to help smoke cessation.. - Vitals & Intake/Output Vital Signs: Vital Signs Temperature 98.6 F 05/01/22 11:52 Pulse Rate 89 05/01/22 11:52 Respiratory Rate 16 05/01/22 11:52 Blood Pressure 179/80 05/01/22 11:52 O2 Sat by Pulse Oximetry 93 L 05/01/22 11:52 Intake & Output: Intake & Output 04/29/22 04/30/22 05/01/22 05/02/22 11:59 11:59 11:59 11:59 Intake Total 1440 1200 1100 Balance 1440 1200 1100 Weight 85.8 kg 86.3 kg 86.5 kg - Lab Result Diagrams: 05/01/22 04:52 05/01/22 04:52 Lab Results-Last 24 Hrs: Lab Results-Last 24 Hours 04/30/22 05/01/22 05/01/22 Range/Units 06:20 04:52 04:52 WBC 7.8 (4.0-10.5) x10^3/uL RBC 3.99 L (4.1-5.4) x10^6/uL Hgb 12.0 (12.0-16.0) g/dL Hct 38.9 (35-47) % MCV 97.5 (78-100) fL MCH 30.1 (26-32) pg MCHC 30.8 L (32-36) g/dL RDW 14.2 H (11.5-14.0) % Plt Count 185 (150-450) x10^3/uL MPV 11.0 (7.5-11.0) fL Segmented Neutrophils 80 H 73 H (36.0-66.0) % Band Neutrophils 5 H 2 (0.0-2.0) % Lymphocytes (Manual) 6 L 17 L (24-44) % Monocytes (Manual) 5 8 (0.0-12.0) % Metamyelocytes 4 % Platelet Estimate NORMAL NORMAL (NORMAL) RBC Morphology NORMAL NORMAL Sodium 143 (137-145) mmol/L Potassium 4.1 (3.5-5.1) mmol/L Chloride 104 (98-107) mmol/L Carbon Dioxide 32 H (22-30) mmol/L Anion Gap 10.0 (5-15) MEQ/L BUN 31 H (7-17) mg/dL Creatinine 0.58 (0.52-1.04) mg/dL Estimated GFR > 60.0 ML/MIN Glucose 182 H (74-106) mg/dL Calcium 8.7 (8.4-10.2) mg/dL Micro Results-Entire Visit: Microbiology 04/27/22 21:50 Blood Culture - Preliminary Blood NO GROWTH TO DATE 04/27/22 21:40 Blood Culture - Preliminary Blood NO GROWTH TO DATE 04/27/22 22:21 Urine Culture - Final Urine, Void <10K NORMAL SKIN ОЛЕГ PROBABLE SKIN CONTAMINANT - Procedures and Test Procedures and Tests throughout Hospitalization: Therapy Orders & Screens 04/27/22 22:08 Respiratory Therapy Assessment DAILY Comment: 04/28/22 01:58 Oxygen Nasal Cannula 2 lpm Comment: Discharge Exam General Appearance: no apparent distress Neurologic Exam: alert, oriented x 3, normal mood/affect Eye Exam: eyes nml inspection Ears, Nose, Throat Exam: normal ENT inspection Neck Exam: normal inspection Respiratory Exam: wheezing, other (deep cough productive of light yellow mucus during exam) Gastrointestinal/Abdomen Exam: soft (nontender) Final Diagnosis/Problem List - Final Discharge Diagnosis/Problem (1) Respiratory failure Current Visit: Yes Status: Resolved Code(s): J96.90 - RESPIRATORY FAILURE, UNSP, UNSP W HYPOXIA OR HYPERCAPNIA (2) Bilateral pneumonia Current Visit: Yes Status: Acute Assessment & Plan: clinically improved and off O2 Code(s): J18.9 - PNEUMONIA, UNSPECIFIED ORGANISM (3) COPD exacerbation Current Visit: Yes Status: Acute Assessment & Plan: improved Code(s): J44.1 - CHRONIC OBSTRUCTIVE PULMONARY DISEASE W (ACUTE) EXACERBATION (4) Tobacco abuse Current Visit: Yes Status: Chronic Assessment & Plan: refuses help to quit smoking at this time Code(s): Z72.0 - TOBACCO USE - Discharge Disposition: Home, Self-Care Condition: Stable Prescriptions: New Prednisone 10 mg [Deltasone 10 mg] 10 mg PO BID #20 tablet Azithromycin 250 mg [Zithromax 250 MG TABLET] 250 mg PO ZPACK #1 tablet Cefuroxime Axetil 500 mg [Ceftin 500 mg] 500 mg PO BID #10 tablet Albuterol Sulfate [Albuterol Sulfate Hfa] 18 gm IH Q4H PRN #1 PRN Reason: wheezing Ipratropium/Albuterol Sulfate [Iprat-Albut 0.5-3(2.5) mg/3 ml] 3 ml IH TID #60 Continue Naproxen 500 mg [Naprosyn 500 MG] 500 mg PO BID PRN PRN Reason: Pain Famotidine 20 mg PO DAILY Loratadine/Pseudoephedrine [Claritin-D 12 Hour Tablet] 1 each PO DAILY Instructions: Chronic Obstructive Pulmonary Disease (COPD) (DC), How to Use a Nebulizer, Adult Additional Instructions: ORDER FOR NEB MACHINE WAS CALLED INTO [facility] Follow up with: PÉREZ ZHOU MD [ACTIVE STAFF] - 05/09/22 10:45 am Forms: Discharge Instructions
[2022-05-01 13:04] VITALS: PULSE 87; O2SAT 94
[2022-05-02 13:27] LABS: ALLEN TEST OK? yes
== END 2022-05-01 14:23 | disposition home or self-care (01) | DRG 189 ==
LOC: ED 21:09 → ICU 04-28 01:55 → MED SURG 04-28 08:56
PROVIDERS: ADMIT Family Medicine; ATTEND Family Medicine
DX: J96.90 Respiratory failure, unspecified, unspecified whether with hypoxia or hypercapnia (principal); J18.9 Pneumonia, unspecified organism; J44.1 Chronic obstructive pulmonary disease with (acute) exacerbation; Z72.0 Tobacco use; Z79.899 Other long term (current) drug therapy; Z20.828 Contact with and (suspected) exposure to other viral communicable diseases
CPT/HCPCS: 0241U; 36000; 36415; 36600; 71045; 71260; 80048; 80053; 81015; 82375; 82803; 83605; 83735; 83880; 84484; 85025; 85379; 87040; 87086; 90686; 93005; 93041; 94640; 94760; 96360; 96365; 96374; 96375; 99285; G0008; J0456; J0696; J2270; J2930; A9270-GY

== ENCOUNTER 2024-07-10 10:53 | Day surgery (SDC) | payer OTHER ==
[2024-07-10] MEDS ORDERED: LIDOCAINE HCL 1% AMPUL 5 ML IJ ONE (10:54)
[2024-07-10] MEDS ORDERED: Sodium Chloride 0.9(Preservative Free) 10 ML IJ ONE (10:54)
[2024-07-10] MEDS ORDERED: Depo-Medrol 40 MG/ML IM ONE (10:54)
[2024-07-10] MEDS ORDERED: DIPRIVAN 200 MG/20 ML IV ONE (12:33)
--- NOTE | 2024-07-10 13:53 | XRAY ---
Indication: Lumbar ANNA MARIE. Intraoperative fluoroscopy provided for 14 seconds. 2 digital spot image submitted for interpretation demonstrates posterior needle tip projecting posterior to L4-L5 interspace. Small amount of contrast injected for needle tip placement. Correlate with intraoperative findings/report.
--- NOTE | 2024-07-10 14:45 | XRAY ---
14 seconds of fluoroscopy was used in surgery for a lumbar ANNA MARIE.
== END 2024-07-10 13:05 | disposition home or self-care (01) ==
LOC: SDC-PAIN 10:53
PROVIDERS: ATTEND Psychiatry & Neurology Pain Medicine
DX: M54.16 Radiculopathy, lumbar region (principal)
CPT/HCPCS: 62323; 72100; 77003; J2704; Q9966